=== PATIENT | female | born 1995 | race African-American/Black ===

== ENCOUNTER 2022-06-18 03:54 | Emergency (ER) | payer OTHER ==
[2022-06-18 04:05] VITALS: BMI 30.2
[2022-06-18 06:13] LABS: HEMATOCRIT 39.8 % (32.4-45.2); HEMOGLOBIN 13.2 GM/dL (10.7-15.3); LYMPH % 14.8 % (8-40); MCH 28.6 pg (25.7-33.7); MCHC 33.1 g/dl (32.0-36.0); MEAN CELL VOLUME 86.3 fl (80-96); MEAN PLT VOLUME 10.4 fl (7.5-11.1); MONO % 6.9 % (3.8-10.2); NEUT % 76.3 % (42.8-82.8); PLATELET COUNT 143 10^3/uL (134-434); RBC 4.61 M/mm3 (3.60-5.2); RDW 13.8 % (11.6-15.6); WHITE BLOOD COUNT 8.5 K/mm3 (4.0-10.0)
[2022-06-18 06:19] LABS: INR 1.12 (0.83-1.09)
[2022-06-18 06:20] LABS: EPI CELLS >36 /uL (0-25.1); HYALINE CASTS 7 /uL (0-3.1); URINE APPEARANCE CLOUDY; URINE BACTERIA 1637 /uL (0-1359); URINE BILIRUBIN NEGATIVE (NEGATIVE); URINE COLOR DK YELLOW; URINE GLUCOSE (UA) NEGATIVE (NEGATIVE); URINE KETONE 3+ (NEGATIVE); URINE LEUK ESTERASE TRACE (NEGATIVE); URINE NITRITE NEGATIVE (NEGATIVE); URINE PROTEIN TRACE (NEGATIVE); URINE RBC 6 /uL (0-23.9); URINE WBC 55 /uL (0-25.8)
[2022-06-18 06:21] LABS: ACTIVATED PTT 31.3 SECONDS (25.2-36.5)
[2022-06-18] MEDS ORDERED: DEXTROSE 5%-NORMAL SALINE 500 ML IV ONE (06:24)
[2022-06-18] MEDS ORDERED: METOCLOPRAMIDE HCL INJECTION 10 MG/2 ML VIAL IVPB ONE (06:25)
[2022-06-18 06:34] LABS: BLOOD UREA NITROGEN 9.6 mg/dL (7-18); CALCIUM 8.7 mg/dL (8.5-10.1)
[2022-06-18] MEDS ORDERED: DEXTROSE 5%-NORMAL SALINE 1,000 ML IV ONE (06:34)
[2022-06-18] MEDS ORDERED: METOCLOPRAMIDE HCL INJECTION 10 MG/2 ML VIAL ONE (06:34)
[2022-06-18 06:35] LABS: ALBUMIN 4.1 g/dl (3.4-5.0)
[2022-06-18 06:37] LABS: CREATININE 0.8 mg/dL (0.55-1.3)
[2022-06-18 06:39] LABS: BILIRUBIN,TOTAL 1.2 mg/dL (0.2-1); TOT PROT 7.2 g/dl (6.4-8.2)
[2022-06-18] MEDS ORDERED: CEPHALEXIN MONOHYDRATE 500 MG CAPSULE (UD) PO ONE (09:51)
[2022-06-18] MEDS ORDERED: CEPHALEXIN MONOHYDRATE 500 MG CAPSULE (UD) ONE (10:13)
[2022-06-18 12:27] VITALS: BP 101/60; PULSE 80; RESP 16; TEMP 98.2
== END 2022-06-18 12:20 | disposition home or self-care (01) ==
LOC: JER 03:54
PROC: 3E033GC Introduction of Other Therapeutic Substance into Peripheral Vein, Percutaneous Approach (ICD-10-PCS; principal; 2022-06-18)
DX: O23.41 Unspecified infection of urinary tract in pregnancy, first trimester (principal); Z3A.01 Less than 8 weeks gestation of pregnancy
CPT/HCPCS: 36415; 76817-TC; 80053; 81003; 82962; 84702; 84703; 85025; 85610; 85730; 86850; 86900; 86901; 87086; 99284-25